=== PATIENT | female | born 1950 | race Caucasian/White ===

== ENCOUNTER → 2017-01-24 | Outpatient (CLI) | payer MEDICARE, OTHER ==
[~2017-01-24] MED LIST: ADULT LOW DOSE81 MG PO; CALCIUM600 MG PO; COQ-10100 MG PO; MULTIVITAMINS1 EAC1 PO; PRAVACHOL40 MG PO; PRINIVIL10 MG PO; SECTRAL CAP 20200 MG PO; SINGULAIR10 MG PO; VITAMIN D400 UNIT PO; ZANTAC300 MG PO; ZYRTEC10 MG PO
== END ==
LOC: ECHO 08:39 → HEART 5 09:00 → ECHO 09:00
DX: R06.02 Shortness of breath (principal); I45.6 Pre-excitation syndrome; I34.1 Nonrheumatic mitral (valve) prolapse; I47.1 Supraventricular tachycardia; I05.1 Rheumatic mitral insufficiency; I07.1 Rheumatic tricuspid insufficiency
CPT/HCPCS: ECHO; 78452; 93017; 93306; A9502; J2785